=== PATIENT | female | born 1985 | race Caucasian/White ===

== ENCOUNTER 2020-12-31 10:38 | Emergency (ER) | payer OTHER ==
[2020-12-31 12:45] LABS: BASOPHIL 0.7 % (0-2); EOSINOPHIL 2.7 % (0-5); HCT 43.8 % (37.0-47.0); HGB 15.2 g/dl (12.5-16.0); LYMPHOCYTE 22.3 % (15-48); MCH 35.2 pg (25.0-31.0); MCHC 34.7 g/dL (32.0-36.0); MCV 101.4 fL (78.0-100.0); MONOCYTE 7.5 % (0-12); MPV 9.5 fL (6.0-9.5); NEUTROPHIL 66.4 % (41-80); NRBC 0; PLT 219 K/uL (150-400); RBC 4.32 M/uL (4.20-5.40); RDW 12.4 % (11.5-14.0); WBC 6.9 K/uL (4.0-10.5)
[2020-12-31 13:05] LABS: BUN 8 mg/dL (7-18); BUN/CREAT RATIO (CALC) 9.1 RATIO; CHLORIDE 99 mmol/L (98-107); CO2 (BICARBONATE) 29 mmol/L (21-32); CREATININE 0.88 mg/dL (0.51-0.95); GLUCOSE 79 mg/dL (74-106); POTASSIUM 4.1 mmol/L (3.5-5.1)
[2020-12-31 13:13] LABS: BILIRUBIN NEGATIVE (NEGATIVE); BLOOD NEGATIVE Ery/uL (NEGATIVE); CLARITY CLEAR (CLEAR); COLOR YELLOW (YELLOW); GLUCOSE (U) NORMAL (NORMAL); LEUKOCYTES NEGATIVE Leu/uL (NEGATIVE); NITRITE NEGATIVE (NEGATIVE); PROTEIN NEGATIVE (NEGATIVE); SPECIFIC GRAVITY <=1.005 (1.001-1.030); UROBILINOGEN 0.2 mg/dL (0.2-1.0)
== END 2020-12-31 14:41 | disposition home or self-care (01) ==
LOC: FER 10:38
PROVIDERS: Emergency Medicine
DX: H61.21 Impacted cerumen, right ear (principal); E03.9 Hypothyroidism, unspecified; Z88.0 Allergy status to penicillin
CPT/HCPCS: 32555; 36415; 71045; 80048; 81003; 84439; 84443; 84481; 85025